=== PATIENT | female | born 2000 | race African-American/Black ===

== ENCOUNTER 2021-10-25 09:13 | Emergency (ER) | payer SELFPAY ==
[~2021-10-25] VITALS: Ht 167.6 cm; Wt 95.0 kg
[2021-10-25 09:21] VITALS: BP 102/40
[2021-10-25] MEDS ORDERED: ACETAMINOPHEN 325MG TABLET PO PRN (10:15)
[2021-10-25 12:29] LABS: BASOPHILS % 0.8 % (0.0-2.0); EOSINOPHILS % 0.6 % (0.0-5.0); HEMATOCRIT. 36.1 % (36.0-48.0); HEMOGLOBIN. 11.6 g/dL (12.0-16.0); LYMPHOCYTES % 44.4 % (20.0-50.0); MEAN CORPUSCULAR HEMOGLOBIN 23.3 pg (28.0-32.0); MEAN CORPUSCULAR VOLUME 72.3 fL (81.0-99.0); MONOCYTES % 7.2 % (2.0-8.0); PLATELET 294 x1000/uL (130-400); RED BLOOD CELL COUNT 4.99 mill/uL (4.2-5.4); RED CELL DISTRIBUTION WIDTH 15.6 % (11.6-14.6)
[2021-10-25 12:30] LABS: CLARITY URINE CLOUDY (CLEAR); COLOR URINE YELLOW (YELLOW); KETONES URINE 1+ (NEGATIVE); LEUKOCYTE ESTERASE URINE 1+ (NEGATIVE); NITRITE URINE POSITIVE (NEGATIVE); OCCULT BLOOD URINE 2+ (NEGATIVE); PH URINE 7.5 (4.5-8.0); PROTEIN URINE TRACE (NEGATIVE); SPECIFIC GRAVITY URINE 1.028 (1.005-1.030)
[2021-10-25 12:39] LABS: CHLORIDE 107 mEq/L (98-107)
[2021-10-25 13:06] LABS: B-HCG QUANTITATIVE 6971 mIU/mL (<3)
[2021-10-25] MEDS ORDERED: PNV1TABL55 MT (13:53)
[2021-10-25] MEDS ORDERED: CEPH500C2 MT (13:53)
== END 2021-10-25 14:05 | disposition home or self-care (01) ==
LOC: ER 11:27
DX: O23.31 Infections of other parts of urinary tract in pregnancy, first trimester (principal); Z3A.01 Less than 8 weeks gestation of pregnancy
CPT/HCPCS: 36415; 76801; 80053; 81003; 81025; 84702; 85025; 86850; 86900; 99284